=== PATIENT | male | born 1950 | race Caucasian/White ===

== ENCOUNTER 2016-09-11 19:20 | Emergency (ER) | payer OTHER, BC ==
[~2016-09-11] VITALS: Ht 175.3 cm; Wt 87.0 kg
[~2016-09-11 19:20] MED LIST: ASPIRIN81 M1 PO; ATIVAN0.25 MG PO; ELIGARD7.5 MG SC; FIORICET,ESG1 TABLET PO; FISH OIL 1,0001 EAC7 PO; SUMATRIPTAN SUC25 MG PO; TOPAMAX50 MG PO; VITAMIN D400 UNI2 PO; ZOLPIDEM TARTRA10 MG PO; ZOMETA 4 M4 MG/100 M IV
[2016-09-11 20:10] LABS: HEMATOCRIT 40.2 % (38.0-50.0); MCH 29.5 PG (29.0-34.0); MCHC 32.3 G/DL (30.0-36.0); MCV 91.4 FL (86-99); MEAN PLAT.VOLUME 9.6 uM^3 (9.0-12.4); PLATELET COUNT 202 K/uL (156-360); RBC DIS.WIDTH-CV 13.5 % (11.8-14.6); WHITE BLOOD COUNT 9.2 K/uL (4.1-10.2)
[2016-09-11 20:20] LABS: CHLORIDE 108 mEq/L (99-109); POTASSIUM 4.2 mEq/L (3.7-5.4); SODIUM 143 mEq/L (136-147)
[2016-09-11 20:22] LABS: GLUCOSE 131 mg/dL (70-99)
[2016-09-11 20:24] LABS: ANION GAP 11 MEQ/L (2-14)
[2016-09-11 20:26] LABS: GFR ESTIMATE (CALCULATED) > 59 mL/min/
[2016-09-11 20:27] LABS: UREA NITROGEN (BUN) 22 mg/dL (9-23)
[2016-09-11 21:11] LABS: TROP-I INTERPRETATION NEGATIVE; TROPONIN-I < 0.01 ng/mL (0.0-0.30)
[2016-09-11 21:34] VITALS: BP 112/67
== END 2016-09-11 21:35 | disposition home or self-care (01) ==
LOC: EME 19:20
PROVIDERS: Emergency Medicine
DX: R55 Syncope and collapse (principal); Z85.46 Personal history of malignant neoplasm of prostate
CPT/HCPCS: 71020; 80048; 84484; 85027; 93005; 99281; 99284

== ENCOUNTER → 2016-10-08 | Outpatient (CLI) | payer OTHER, BC | END | disposition home or self-care (01) | LOC: EEG 08:59 | DX: R55 Syncope and collapse (principal); R25.8 Other abnormal involuntary movements | CPT/HCPCS: 95954 ==

== ENCOUNTER 2017-04-18 23:52 | Emergency (ER) | payer OTHER, BC ==
[~2017-04-18] VITALS: Ht 175.3 cm; Wt 84.5 kg
[2017-04-19 00:33] LABS: HEMATOCRIT 42.7 % (38.0-50.0); MCH 29.6 PG (29.0-34.0); MCV 89.5 FL (86-99); MEAN PLAT.VOLUME 9.3 uM^3 (9.0-12.4); PLATELET COUNT 162 K/uL (156-360); RBC DIS.WIDTH-CV 13.3 % (11.8-14.6); RED BLOOD COUNT 4.77 M/uL (4.00-5.50); WHITE BLOOD COUNT 5.7 K/uL (4.1-10.2)
[2017-04-19 00:46] LABS: CHLORIDE 107 mEq/L (99-109); SODIUM 139 mEq/L (136-147)
[2017-04-19 00:48] LABS: GLUCOSE 122 mg/dL (70-99)
[2017-04-19 00:49] LABS: ANION GAP 12 MEQ/L (2-14)
[2017-04-19 00:50] LABS: TOTAL BILIRUBIN 0.5 mg/dL (0.0-1.0)
[2017-04-19 00:51] LABS: ALKALINE PHOSPHATASE 45 IU/L (3-129)
[2017-04-19 00:52] LABS: GFR ESTIMATE (CALCULATED) > 59 mL/min/
[2017-04-19 00:53] LABS: UREA NITROGEN (BUN) 15 mg/dL (9-23)
[2017-04-19 00:55] LABS: LIPASE 29 U/L (1.0-51.0)
[2017-04-19 03:48] LABS: ADD MIUA? NO; BILIRUBIN NEGATIVE; BLOOD NEGATIVE; COLOR STRAW ((YELLOW)); GLUCOSE (STRIP) NEGATIVE; KETONES 5; LEUKOCYTES NEGATIVE; NITRITE NEGATIVE; PROTEIN (STRIP) NEGATIVE; SPECIFIC GRAVITY 1.006 (1.000-1.030); UCUL ADDED? NO; UROBILINOGEN 0.2 MG/DL (0.2-1.0)
[2017-04-19] MEDS ORDERED: ZOFRAN4 MG PO (04:40)
[2017-04-19 06:16] VITALS: BP 112/63
== END 2017-04-19 06:17 | disposition home or self-care (01) ==
LOC: EME 23:52
DX: R11.2 Nausea with vomiting, unspecified (principal); R19.7 Diarrhea, unspecified; E86.0 Dehydration; R50.9 Fever, unspecified; Z85.46 Personal history of malignant neoplasm of prostate; Z92.21 Personal history of antineoplastic chemotherapy; Z90.79 Acquired absence of other genital organ(s); Z79.82 Long term (current) use of aspirin
CPT/HCPCS: 80053; 81003; 83690; 85027; 99281; 99285; J2405; J7030